=== PATIENT | male | born 1985 | race African-American/Black ===

== ENCOUNTER 2019-04-25 23:57 | Emergency (ER) | payer MEDICAID, SELFPAY ==
--- NOTE | ~2019-04-25 | CT_ITS ---
EXAMINATION: CT abdomen pelvis wo con DATE: 04/26/2019 02:15 INDICATION: Generalized abdominal pain. TECHNIQUE: Computed tomography (CT) of the abdomen and pelvis was performed without intravenous contr ast. Automated exposure control and iterative reconstruction technique were employed. The dose-length product was 708.65 mGy-cm. COMPARISON: None. FINDINGS: The visualized portions of the lung bases demonstrate minimal atelectasis on the right. No pleural effusion. The heart size is normal. No pericardial effusion. The liver, spleen, pancreas, adr enal glands, and kidneys are normal. There is no urolithiasis. The stomach is distended by food. Ther e are no dilated loops of bowel. The appendix is normal. There are no pathologically enlarged lymph n odes. There is no free intraperitoneal fluid. There is mild lumbar spondylosis. IMPRESSION: 1. No specific etiology for the patient's symptoms. Reviewed, dictated and finalized at location A. H ATTENDANT
--- NOTE | 2019-04-26 00:11 | ED.BACK ---
HPI - Back Pain/Injury General Chief Complaint: Back Pain/Injury Stated Complaint: lower back pain Time Seen by Provider: 04/26/19 00:06 Source: patient and RN notes reviewed Mode of arrival: ambulatory Limitations: no limitations History of Present Illness HPI Narrative: A 34 y/o male presents to the ED with constant, worsening, stabbing, lower back pain for the past 4 days. He states that the pain began acutely while he was walking to the store 4 days ago. He reports LLE tingling and that the pain radiates into his LLE. He notes that the pain is aggravated when he walks or bends over. He denies taking anything for the pain. He also denies any dysuria, hematuria, N/V/D, ABD pain, fevers, or chills. MD elicited complaint: back pain Onset (ago): day(s) (4) Timing: constant and progressively worsening Quality: stabbing Location: lumbar spine Radiation: other (LLE) Exacerbating factors: walking and other (bending over) Context: other (walking) Associated symptoms: other (LLE tingling) Related Data Allergies Allergy/AdvReac Type Severity Reaction Status Date / Time No Known Allergies Allergy Verified 04/26/19 00:29 Review of Systems Review of Systems: All systems reviewed & are unremarkable except as noted in HPI and below Constitutional: Constitutional: Denies chills and Denies fever(s) Gastrointestinal: Gastrointestinal: Denies abdominal pain, Denies diarrhea, Denies nausea and Denies vomiting Genitourinary: Genitourinary: Denies hematuria and Denies dysuria Musculoskeletal: Musculoskeletal: Reports back pain (lower that radiates into his LLE) Neurologic: Reports tingling (LLE) PMFSH Past Medical History Medical History (Updated 04/26/19 @ 02:53 by Roxana Uribe MD) Healthy adult male Surgical History Surgical History (Updated 04/26/19 @ 00:19 by Cy Welsh) No history of previous surgery Social History Social History (Updated 04/26/19 @ 00:20 by Cy Welsh) Smoking status: Current every day smoker Substance use: current Substance use type: marijuana Exam Const: General: cooperative, no acute distress and alert Nutritional Appearance: well nourished Orientation/consciousness: patient oriented x3 Limitations: no limitations HENMT: Mouth: Yes lip normal and Yes moist mucous membranes Resp: Effort & Inspection: normal respiratory effort Auscultation: clear to auscultation bilaterally Cardio: Rate: regular rate Rhythm: regular rhythm GI: GI Palp: Yes Soft to palpation and No Tenderness to palpation present (GI) Auscultation: normal bowel sounds Skin: General skin exam: normal color Neuro: General: patient oriented x3 Cognition (Neuro): normal cognition Speech: normal speech Extrem: General: normal to inspection, full ROM and no clubbing, cyanosis or edema Psych: Mental Status: mental status grossly normal Affect: normal affect Attitude: cooperative Course Course Emergency Course: Patient without any evidence of ureteral stone on CT. Urine shows mild pyuria. Cultures pending. Patient does not have active urinary symptoms. Patient will be treated with anti-inflammatories, muscle relaxers, and acetaminophen for musculoskeletal back pain. Will refer to on-call primary care physician to follow-up for further care. Vital Signs Vital signs: Vital Signs Temperature 98.7 F 04/26/19 00:13 Pulse Rate 66 04/26/19 00:13 Respiratory Rate 17 04/26/19 00:13 Blood Pressure 138/84 04/26/19 00:13 Pulse Oximetry 100 04/26/19 00:13 Temperature 98.5 F 04/26/19 00:45 Pulse Rate 66 04/26/19 00:13 Respiratory Rate 17 04/26/19 00:13 Blood Pressure 134/94 H 04/26/19 00:45 Pulse Oximetry 100 04/26/19 00:13 MDM - Back Pain/Injury Lab Data Attestation: I reviewed the patient's lab results. Labs: Lab Results 04/26/19 04/26/19 Range/Units 01:42 02:16 Urine Color Yellow (Yellow) Urine Appearance Clear (Clear) Urine pH 7.0 (5.0-9.
[2019-04-26 00:13] VITALS: BP 138/84; PULSE 66; RESP 17; TEMP 37.1; O2SAT 100
[2019-04-26] MEDS: KETOROLAC 30 MG/ML VIAL (*BKC) IV PUSH (00:35)
[2019-04-26 00:45] VITALS: BP 134/94; TEMP 36.9
[2019-04-26 01:55] LABS: Add Urine Microscopic? YES; Appearance Urine Clear (Clear); Bilirubin Urine Negative (Negative); Color Urine Yellow (Yellow); Glucose Urine UA Negative (Negative); Ketones Urine Negative (Negative); Leukocyte Esterase Ur 1+ LEU/UL (Negative); Mucus Urine Rare /lpf; Nitrate Urine Negative (Negative); Protein Urine Negative (Negative); Specific Grav Ur 1.025 (1.001-1.035); Squamous Epithelial Cell Urine Few /hpf (Few); Urobilinogen Urine Negative mg/dL (<2.0)
[2019-04-26 01:56] LABS: Blood Urine Negative (Negative)
[2019-04-26] MEDS: ACETAMINOPHEN 500 MG TABLET 1000 MG PO (03:02)
== END 2019-04-26 03:16 | disposition home or self-care (01) ==
PROVIDERS: Emergency Provider Emergency Medicine
DX: M54.42 Lumbago with sciatica, left side (principal); F17.200 Nicotine dependence, unspecified, uncomplicated
CPT/HCPCS: 74176; 81001; 87086; 87491; 87591; 96374; 99284; A9270; J1885

== ENCOUNTER 2020-02-02 02:51 | Emergency (ER) | payer BC, SELFPAY ==
--- NOTE | ~2020-02-02 | CT_ITS ---
EXAMINATION: CT soft tissue neck w con EXAM DATE: 02/02/2020 04:12 INDICATION: Throat pain. TECHNIQUE: Spiral CT of the neck was performed following intravenous injection of 75 mL Omnipaque 350 . Axial, coronal and sagittal images were reviewed. The dose-length product (DLP) for this examinat ion was 663.43 mGy-cm. The exposure was tailored according to patient size (auto mA exposure control ), and iterative reconstruction (ASIR) was used as additional dose reduction technique. There is no prior study for comparison. FINDINGS: There is bilateral tonsillar edema more on the right side, without rim-enhancing abscess. M ild effacement of the right vallecula. Normal epiglottis thickness. Prevertebral space is normal. Th e thyroid gland is unremarkable. The submandibular and parotid glands are symmetric. Mild bilater al internal jugular chain lymphadenopathy, largest lymph node on the right side measuring 2.4 x 1.5 c m, probably reactive. The superior mediastinum is unremarkable. Parapharyngeal and pre-glottic fat planes are preserved. The opacified vasculature is patent. The orbits are unremarkable. Visual ized sinuses and mastoid air cells are well aerated. Small nonspecific left suprahilar groundglass airspace disease. There is mild cervical spondylosis. IMPRESSION: 1. Moderately edematous right tonsil. 2. Mild cervical lymphadenopathy probably reactive. 3. Small left suprahilar nonspecific groundglass opacity. Nonspecific pneumonitis, possible acute in fectious process. Reviewed, dictated and finalized at location A. ETING SALES REPRESENTATIVE IMPRESSION: 1. Moderately edematous right tonsil. 2. Mild cervical lymphadenopathy probably reactive. 3. Small left suprahilar nonspecific groundglass opacity. Nonspecific pneumoni tis, possible acute infectious process.
[2020-02-02 02:53] VITALS: BP 158/79; PULSE 93; RESP 18; TEMP 37.8; O2SAT 96
--- NOTE | 2020-02-02 03:11 | ED.GENADULT ---
HPI - General Adult General Chief complaint: Unspecified Stated complaint: sore throat Time Seen by Provider: 02/02/20 02:55 Source: RN notes reviewed History of Present Illness HPI narrative: Patient presents emergency department from home for throat pain. Patient states symptoms began 2 days ago. He states pain is worse on the right than the left painful to swallow with difficulty swallowing states he is able to swallow his own secretions he denies any fevers or chills chest pain shortness of breath or any other symptoms denies having any cough Related Data Allergies Allergy/AdvReac Type Severity Reaction Status Date / Time No Known Allergies Allergy Verified 04/26/19 00:29 Review of Systems Review of Systems: Narrative: Gen.: Denies fevers or chills Eyes: Denies eye pain or visual change ENT: See HPI Respiratory: Denies shortness of breath or cough CV: Denies chest pain or palpitations GI: Denies abdominal pain nausea, emesis or diarrhea Musculoskeletal: Denies back pain or muscle pain Neuro: Denies numbness, tingling, weakness or focal weakness Skin: Denies rash Except as documented, all other systems reviewed and negative [facility] Past Medical History Medical History Healthy adult male Surgical History Surgical History (Updated 04/26/19 @ 00:19 by Cy Welsh) No history of previous surgery Social History Social History Smoking status: Current every day smoker Substance use: current Substance use type: marijuana Exam Narrative: Exam Narrative: APPEARANCE: No acute distress, nontoxic, resting in bed EYES: EOMI HEENT: Normocephalic, atraumatic, TMs clear bilaterally nares patent oral mucosa moist, erythema of the posterior pharynx and bilateral tonsils with white exudate on bilateral tonsils, the uvula is shifted mildly to the left mild trismus voice is normal mild protrusion of the right tonsil Neck: Supple no cervical lymphadenopathy RESPIRATORY: No respiratory distress Clear to auscultation bilaterally with no rhonchi wheezing or rales. CARDIOVASCULAR: Regular rate and rhythm without murmurs rubs or gallops. ABDOMINAL: Soft, nontender, nondistended, no rebound or guarding MUSCULOSKELETAl: Moves all extremities. No clubbing, cyanosis or edema. NEURO: Awake and alert. Following commands, speech normal, no focal deficits SKIN:: Warm, dry. No rashes lesions or abrasions PSYCHIATRIC: Normal affect/mood, Course Course Emergency Course: Discussed with patient results of workup and diagnosis. Discussed need for follow-up with primary care, proper use of medication, and reasons to return to the emergency department. Patient understands and agrees to current treatment plan Vital Signs Vital signs: Vital Signs Temperature 100.1 F H 02/02/20 02:53 Pulse Rate 93 02/02/20 02:53 Respiratory Rate 18 02/02/20 02:53 Blood Pressure 158/79 H 02/02/20 02:53 Pulse Oximetry 96 02/02/20 02:53 Temperature 99.0 F 02/02/20 03:48 Pulse Rate 90 02/02/20 06:01 Respiratory Rate 18 02/02/20 06:01 Blood Pressure 119/85 02/02/20 06:01 Pulse Oximetry 99 02/02/20 06:01 Medical Decision Making Vital Signs Vital Signs: Vital Signs Temperature 100.1 F H 02/02/20 02:53 Pulse Rate 93 02/02/20 02:53 Respiratory Rate 18 02/02/20 02:53 Blood Pressure 158/79 H 02/02/20 02:53 Pulse Oximetry 96 02/02/20 02:53 Temperature 99.0 F 02/02/20 03:48 Pulse Rate 90 02/02/20 06:01 Respiratory Rate 18 02/02/20 06:01 Blood Pressure 119/85 02/02/20 06:01 Pulse Oximetry 99 02/02/20 06:01 Lab Data Result diagrams: 02/02/20 03:24 02/02/20 03:24 Labs: Lab Results 02/02/20 02/02/20 Range/Units 03:24 03:24 WBC 16.7 H (4.5-10.0) K/mm3 RBC 4.64 (4.6-6.20) M/mm3 Hgb 13.1 L (14.0-18.0) g/dL Hct 40.1 L (42.0-52.0) % MCV
[2020-02-02] MEDS: SODIUM CHLORIDE 0.9% IV 1,000 ML 999 ML IV CONT (03:17)
[2020-02-02] MEDS: DEXAMETHASONE SOD PHOS INJ 4 MG/ML VIAL 10 MG IV PUSH (03:18)
[2020-02-02 03:48] VITALS: TEMP 37.2
[2020-02-02 03:51] LABS: Basophils Percent Auto 0.1 % (0.2-1.2); Hematocrit 40.1 % (42.0-52.0); Hemoglobin 13.1 g/dL (14.0-18.0); Immature Granulocyte Absolute 0.08 K/mm3 (0.00-0.031); Immature Granulocyte Percent A 0.5 % (0-0.5); Immature Platelet Fraction Pct 12.4 % (0.9-11.2); Lymphocytes Absolute Auto 1.21 K/mm3 (0.9-3.2); Lymphocytes Percent Auto 7.2 % (18.3-44.2); Mean Corpuscular HGB Conc 32.7 g/dl (32-36); Mean Corpuscular Hemoglobin 28.2 pg (26-34); Mean Corpuscular Volume 86.4 fl (80-100); Mean Platelet Volume 12.7 fl (7.4-10.4); Neutrophils Absolute Auto 14.4 K/mm3 (1.3-6.7); Neutrophils Percent Auto 86.2 % (45.5-73.1); Platelet Count Result 130 k/mm3 (150-375); Red Blood Count 4.64 M/mm3 (4.6-6.20); Red Cell Distribution Width 13.4 % (11.5-14.5); White Blood Count 16.7 K/mm3 (4.5-10.0)
[2020-02-02 03:55] LABS: Anion Gap 7 mmol/L (8-16); Blood Urea Nitrogen 9 mg/dL (9-20); Calcium 9.3 mg/dL (8.4-10.2); Carbon Dioxide 29 mmol/L (22-30); Chloride 101 mmol/L (98-107); Estimated CRCL calculation 115 ml/min; Estimated Glomerular Filt Rate > 60; Glucose 121 mg/dL (75-110); Potassium 3.6 mmol/L (3.4-5.0); Sodium 137 mmol/L (137-145)
[2020-02-02 04:01] VITALS: BP 126/81; PULSE 97; RESP 14; O2SAT 99
[2020-02-02 06:01] VITALS: BP 119/85; PULSE 90; RESP 18; O2SAT 99
[2020-02-02] MEDS: AMOXICILLIN/CLAVULANATE K 875-125 MG TAB 1 TABLET PO (06:34)
[2020-02-02 06:35] VITALS: BP 124/71; PULSE 92; RESP 18; O2SAT 100
== END 2020-02-02 06:39 | disposition home or self-care (01) ==
PROVIDERS: Emergency Provider Emergency Medicine
DX: J02.0 Streptococcal pharyngitis (principal); F17.200 Nicotine dependence, unspecified, uncomplicated
CPT/HCPCS: 36415; 70491; 80048; 85025; 85055; 87880; 96361; 96374; 96375; 99284; A9270; J0131; J1100; J7030; Q9967